=== PATIENT | female | born 1965 | race Caucasian/White ===

== ENCOUNTER 2016-09-14 06:08 | Day surgery (SDC) | payer MEDICARE, OTHER ==
[2016-09-14 06:41] VITALS: BMI 32.3
[2016-09-14] MEDS ORDERED: Lactated Ringer's 500 ML IV SCH (08:00)
[2016-09-14] MEDS ORDERED: Propofol 10 mg/ml Inj (20 ML) ONE (08:04)
[2016-09-14] MEDS ORDERED: Lactated Ringer's 500 ML IV ONE ×2 (08:12)
[2016-09-14 08:17] VITALS: O2SAT 100
[2016-09-14 08:47] VITALS: TEMP 96.6
[2016-09-14 09:48] VITALS: RESP 15
[2016-09-14 09:54] VITALS: BP 139/87; PULSE 59
== END 2016-09-14 09:40 | disposition home or self-care (01) ==
LOC: C.ENDO 06:08
PROVIDERS: ATTEND Internal Medicine Gastroenterology
PROC: [UNRECOGNIZED PROCEDURE] (principal; 2016-09-14 08:10)
DX: K62.1 Rectal polyp (principal); K64.8 Other hemorrhoids
CPT/HCPCS: 45388; 88305; J2704; J3010; J7120